=== PATIENT | female | born 2000 | race Caucasian/White ===

== ENCOUNTER 2022-03-28 19:46 | Emergency (ER) | payer MEDICAID ==
[~2022-03-28] VITALS: Ht 167.6 cm; Wt 69.4 kg
[2022-03-28 19:49] VITALS: BP 107/77
== END 2022-03-29 02:05 | disposition left against medical advice (07) ==
LOC: ER 19:46
DX: R06.02 Shortness of breath (principal); Z53.21 Procedure and treatment not carried out due to patient leaving prior to being seen by health care provider
CPT/HCPCS: 93005